=== PATIENT | male | born 1975 | race Caucasian/White ===

== ENCOUNTER 2021-07-26 07:30 | Outpatient (CLI) | payer OTHER, SELFPAY ==
--- NOTE | 2021-07-26 07:52 | XRR_ITS ---
PROCEDURE INFORMATION: Exam: XR Right Hand Exam date and time: 07/26/2021 8:14 AM Age: 46 years old Clinical indication: Pain; Hand; Bilateral; Additional info: Bilat hand pain TECHNIQUE: Imaging protocol: XR Right hand. Views: 3 or more views. COMPARISON: No relevant prior studies available. FINDINGS: Bones/joints: Normal. Soft tissues: Normal. XR/XR hand RT min 3V* [id number] IMPRESSION: No acute findings.
--- NOTE | 2021-07-26 07:52 | XRR_ITS ---
PROCEDURE INFORMATION: Exam: XR Bilateral Hips Exam date and time: 07/26/2021 8:14 AM Age: 46 years old Clinical indication: Hip pain; Bilateral; Additional info: Bilat hip pain TECHNIQUE: Imaging protocol: XR bilateral hips. Views: 2 views of hips with pelvis when performed. COMPARISON: No relevant prior studies available. FINDINGS: Bones/joints: Unremarkable. No acute fracture. Soft tissues: Unremarkable. XR/XR hip BI m 5V wo/w pel* [id number] IMPRESSION: No acute findings.
--- NOTE | 2021-07-26 07:52 | XRR_ITS ---
PROCEDURE INFORMATION: Exam: XR Left Hand Exam date and time: 07/26/2021 8:14 AM Age: 46 years old Clinical indication: Pain; Hand; Bilateral; Additional info: Bilat hand pain TECHNIQUE: Imaging protocol: XR Left hand. Views: 3 or more views. COMPARISON: No relevant prior studies available. FINDINGS: Bones/joints: Normal. Soft tissues: Normal. XR/XR hand LT min 3V* [id number] IMPRESSION: No acute findings.
--- NOTE | 2021-07-26 07:52 | XRR_ITS ---
PROCEDURE INFORMATION: Exam: XR Cervical Spine Exam date and time: 07/26/2021 8:14 AM Age: 46 years old Clinical indication: Cervicalgia and neck pain; Additional info: Cervical spine pain TECHNIQUE: Imaging protocol: XR of the cervical spine. Views: 4 or 5 views. COMPARISON: No relevant prior studies available. FINDINGS: Bones/joints: Trace dextrocurvature of the cervical spine is present. The normal cervical lordosis is maintained, without listhesis. No fracture visualized. Vertebral body heights are well maintained. There is mild degenerative changes, manifested by intervertebral disc space narrowing and tiny endplate osteophytes. No significant neural foraminal narrowing seen on the right. The left neural foraminal on are clearly seen. Soft tissues: Unremarkable. XR/XR cervical spine 4-5V [id number] IMPRESSION: 1. No acute injury. 2. Minimal degenerative changes of the cervical spine.
== END 2021-07-26 07:31 | disposition home or self-care (01) ==
PROVIDERS: Visit Provider Nurse Practitioner Family
DX: M54.2 Cervicalgia (principal); M25.551 Pain in right hip; M25.552 Pain in left hip; M79.641 Pain in right hand; M79.642 Pain in left hand
CPT/HCPCS: 72050; 73130; 73523